=== PATIENT | female | born 1975 | race Hispanic/Latino ===

== ENCOUNTER 2022-04-24 11:55 | Emergency (ER) | payer MEDICAID, SELFPAY ==
[2022-04-24] MEDS ORDERED: Iopamidol 370 76% 100 ML VIAL FS ONE (11:56)
[2022-04-24 13:17] LABS: #Basophils 0.2 thou/uL (0.0-0.2); #Eosinphils 0.1 thou/uL (0.0-0.7); #Lymphocytes 1.7 thou/uL (1.20-3.40); #Monocytes 0.8 thou/uL (0.11-0.59); #Neutrophils 7.6 thou/uL (1.40-6.50); %Basophils 1.5 % (0.0-1.0); %Eosinophils 1.1 % (0.0-10.0); %Lymphocytes 16.8 % (21.0-51.0); %Monocytes 7.4 % (0.0-10.0); %Neutrophils 73.2 % (42.0-75.0); Hemoglobin 17.1 g/dL (12.0-16.0); Mean Corpuscular HGB CONC 32.5 g/dL (32.0-36.0); Mean Corpuscular Hemoglobin 29.9 pg (27.0-31.0); Mean Platelet Volume 7.9 fL (7.4-10.4); Platelet Count 290 thou/uL (130-400); RBC Distribution Width 12.7 % (11.5-14.5); Red Blood Cell (RBC) Count 5.72 mill/uL (4.20-5.40); White Blood Cell (WBC) Count 10.4 thou/uL (4.8-10.8)
[2022-04-24] MEDS ORDERED: Fentanyl 100 MCG/2 ML VIAL ONE ×2 (13:18→14:13)
[2022-04-24] MEDS ORDERED: Sodium Chloride 0.9% 100 ML ONE (13:32)
[2022-04-24] MEDS ORDERED: cefTRIAXone\\ROCEPHIN 2 GM VIAL ONE (13:32)
[2022-04-24 13:34] LABS: ALT (SGPT) 12 U/L (8-55); AST (SGOT) 16 U/L (5-34); Albumin 4.3 g/dL (3.5-5.0); Alkaline Phosphatase 81 U/L (40-110); Anion Gap 16 mmol/L (10-20); BUN (Urea Nitrogen) 6 mg/dL (7.0-18.7); Bilirubin, Total 0.8 mg/dL (0.2-1.2); Calc. Creatinine Clearance 0 mL/min (70-130); Calcium 9.6 mg/dL (7.8-10.44); Carbon Dioxide 23 mmol/L (22-29); Chloride 102 mmol/L (98-107); Estimated GFR 110; Globulin 3.6 g/dL (2.4-3.5); Glucose 88 mg/dL (70-105); Potassium 3.9 mmol/L (3.5-5.1); Protein, Total 7.9 g/dL (6.0-8.3); Sodium 137 mmol/L (136-145)
[2022-04-24] MEDS ORDERED: Tetracaine 0.5% PF 4 ML BOT ONE (14:00)
== END 2022-04-24 15:28 | disposition short-term general hospital (02) ==
LOC: BURERS 11:55
DX: H05.011 Cellulitis of right orbit (principal); F17.210 Nicotine dependence, cigarettes, uncomplicated
CPT/HCPCS: 70481; 80053; 85025; 96365; 96367; 96375; 96376; J0696; J3010; J3370; J3490; Q9967